=== PATIENT | male | born 1995 | race Hispanic/Latino ===

== ENCOUNTER 2025-01-27 11:59 | Emergency (ER) | payer OTHER ==
[~2025-01-27] VITALS: Ht 167.6 cm; Wt 104.4 kg
[2025-01-27] MEDS ORDERED: TIZANIDINE HCL4 MG (15:18)
[2025-01-27] MEDS ORDERED: MOUNJARO2.5 MG/0.5 SQ (15:18)
[2025-01-27] MEDS ORDERED: LIRAGLUTID0.6 MG/0.1 (15:18)
[2025-01-27] MEDS ORDERED: LOSARTAN POTASS25 MG (15:18)
[2025-01-27] MEDS ORDERED: MELOXICAM7.5 MG (15:19)
[2025-01-27] MEDS ORDERED: HYDROXYZINE HCL10 MG (15:20)
[2025-01-27] MEDS ORDERED: TENOFOVIR DISO300 MG (15:20)
[2025-01-27] MEDS ORDERED: HYDROXYZINE HCL25 MG (15:20)
[2025-01-27 17:42] LABS: BASOPHILS 0.6 % (0.2-1.2); EOSINOPHILS 2.4 % (0.8-7.0); LYMPHOCYTES 37.5 % (21.8-53.1); MCH 29.9 PG (25.7-32.2); MCHC 35.1 g/dL (32.3-36.5); MCV 85.3 fL (79.0-92.2); MONOCYTES 5.1 % (5.3-12.2); NEUTROPHILS 54.1 % (34.0-67.9); RBC 5.11 M/uL (4.63-6.08)
[2025-01-27 17:57] LABS: ALT (SGPT) 95.0 U/L (14-59); AST (SGOT) 44.0 U/L (15-37); GLOMERULAR FILTRATION RATE,EST 138.0 mL/min (>60); PROTEIN, TOTAL 7.3 g/dL (6.4-8.2); UREA NITROGEN 12.0 mg/dL (7-18)
[2025-01-27] MEDS ORDERED: SODIUM CHLORIDE 0.9% 1,000 ML IV PRN (18:15)
[2025-01-27 19:51] VITALS: BP 132/91
--- OUTSIDE RECORDS SUMMARY | 2025-01-27 19:56 | XMS ---
PreManage Notification: LORI WAGNER Security Performance Tester Events No recent Security Events currently on file CRITERIA MET - [facility] - 2 Visits in 30 Days CARE PROVIDERS Jarret Diaz Community Health Worker 10/31/2022-Current PHONE: [phone] Purvi Rod Drawer 09/25/2020-Current PHONE: [phone] -[facility] Dentist: Environmental Remediation Specialist [facility] PHONE: [phone] -Umair- Dentist: Environmental Remediation Specialist Current [facility] PHONE: [phone] [facility] Current CARE SYSTEM \F\ <UNAVAIL> PHONE: [phone] Dari has no Care Guidelines for this patient. Alissa VISIT COUNT (12 MO.) [address] [facility] TOTAL 2 NOTE: Visits indicate total known visits. ED/UCC VISIT TRACKING (12 MO.) 01/27/2025 12:00 [facility] [place] TYPE: Emergency COMPLAINT: - UPPER ABDOMINAL PAIN 01/26/2025 07:27 [facility] [place] TYPE: Emergency DIAGNOSES: - Flank pain, right side - Right upper quadrant pain - BACK PAIN INPATIENT VISIT TRACKING (12 MO.) No inpatient visits to display in this time frame [email or web address]
== END 2025-01-27 19:50 | disposition home or self-care (01) ==
LOC: ED 11:59
PROVIDERS: Emergency Medicine
DX: R74.01 Elevation of levels of liver transaminase levels (principal); K76.0 Fatty (change of) liver, not elsewhere classified; I10 Essential (primary) hypertension; R73.03 Prediabetes; Z88.8 Allergy status to other drugs, medicaments and biological substances; Z79.85 Long-term (current) use of injectable non-insulin antidiabetic drugs; Z79.899 Other long term (current) drug therapy
CPT/HCPCS: 36415; 71046; 76705; 80053; 83690; 85025; 99284-25